=== PATIENT | female | born 1975 | race American Indian/Alaskan Native ===

== ENCOUNTER 2017-07-20 16:59 | Emergency (ER) | payer OTHER ==
[2017-07-20 18:10] VITALS: BP 121/84; PULSE 82; RESP 18; TEMP 97.8; O2SAT 98
--- NOTE | 2017-07-20 20:16 | C.PDOC ---
History Of Present Illness 41 year old female presents to ED with complaints of flu-like symptoms x5 days and has a past medical history of GERD. (+) malaise, body aches, nasal congestion, and sore throat. Patient notes being sen by Dr. Sifuentes (PMD) x3 days ago and denies improvement in symptoms after prescriptions. Patient seeks CT head, labs, and IV fluids. Time Seen by Provider: 07/20/17 19:31 Chief Complaint (Nursing): Headache History Per: Patient History/Exam Limitations: no limitations Onset/Duration Of Symptoms: Days (x5) Current Symptoms Are (Timing): Still Present Past Medical History Reviewed: Historical Data, Nursing Documentation, Vital Signs Vital Signs: Last Vital Signs Temp 97.8 F 07/20/17 18:04 Pulse 82 07/20/17 18:04 Resp 18 07/20/17 19:30 BP 121/84 07/20/17 18:04 Pulse Ox 98 07/21/17 02:57 - Medical History PMH: GERD Family History: States: No Known Family Hx - Social History Hx Alcohol Use: No Hx Substance Use: No - Immunization History Hx Tetanus Toxoid Vaccination: No Hx Influenza Vaccination: No Hx Pneumococcal Vaccination: No Review Of Systems Except As Marked, All Systems Reviewed And Found Negative. Constitutional: Positive for: Malaise, Other ((+) body aches) ENT: Positive for: Nose Congestion, Throat Pain Physical Exam - Physical Exam Appears: No Acute Distress, Other (Morbidly obese) Skin: Normal Color, Warm, Dry Eye(s): bilateral: Normal Inspection, PERRL, EOMI Nose: Normal, Other (mild bilateral nasal congestion, right > left) Oral Mucosa: Moist Tongue: Normal Appearing Lips: Normal Appearing Teeth: Normal Dentition Throat: Normal ED Course And Treatment O2 Sat by Pulse Oximetry: 98 (RA) Pulse Ox Interpretation: Normal (R) Progress Note: ordered pseudafed and Motrin presuming viral syndrome and nasal congestion. Pt requests IVF's convinced she is "dehydrated" though taking PO regularly. Agreed to IVF and Toradol. 2015: pt and family want to be d/c, "to go to another hospital" explained the IVF's were being ordered and would be hung in a few minutes, pt deferred and refused PO meds as ordered. Medical Decision Making Medical Decision Making: viral syndrome LOW susp of influenza nor significant enemia. labs and IVF's ordered, pt refused. ??? what is this pt asking for? nasal decongestants and OTC flu/cold meds educated with poor insight. Patient was offered Sudafed and Motrin to expedite disposition, which patient declined. Patient requests CT HEAD, which was deferred due to radiation exposure versus minimal benefit. Patient declined labs and requests discharge. Patient is stable for discharge. Scribe Attestation: Documented by Dione Trevizo acting as a scribe for Kolton Youngblood MD. Scribe Attestation: All medical record entries made by the Scribe were at my direction and personally dictated by me. I have reviewed the chart and agree that the record accurately reflects my personal performance of the history, physical exam, medical decision making, and the department course for this patient. I have also personally directed, reviewed, and agree with the discharge instructions and disposition. Disposition Doctor Will See Patient In The: Office Counseled Patient/Family Regarding: Studies Performed, Diagnosis - Disposition Referrals: Hiram Diaz MD [Staff Provider] - Disposition: HOME/ ROUTINE Disposition Time: 20:16 Condition: GOOD Additional Instructions: take liberal fluids by mouth Dayquil and Nyquil (OTC) liberally for symptoms. Psdudafed 30-60 mg for nasal congestion every 6 hours (if not already contained in your cold medicines) follow-up w Dr. Diaz as needed. Instructions: Decongestant/Expectorant (By mouth), Pseudoephedrine (By mouth), Viral Syndrome (ED), Cold Symptoms (ED) Forms: [employer] (Bengali) - Clinical Impression Clinical Impression: Viral syndrome, Nasal congestion
== END 2017-07-20 19:35 | disposition home or self-care (01) ==
LOC: C.ER 16:59
DX: B34.9 Viral infection, unspecified (principal); R09.81 Nasal congestion